=== PATIENT | female | born 1945 | race Caucasian/White ===

== ENCOUNTER → 2017-07-28 | Outpatient (CLI) | payer OTHER, MEDICAID ==
[2016-05-02 04:04] VITALS: BP 127/59
[2017-07-28 13:59] LABS: STOOL FOR WBC POSITIVE (NEGATIVE)
[2017-07-28 14:11] LABS: CRYPTOSPORIDIUM PARVUM ANTIGEN NEGATIVE (NEGATIVE); GIARDIA LAMBLIA ANTIGEN NEGATIVE (NEGATIVE)
== END ==
LOC: LAB 12:41
PROVIDERS: ATTEND Nurse Practitioner Family
DX: R19.7 Diarrhea, unspecified (principal); B96.89 Other specified bacterial agents as the cause of diseases classified elsewhere
CPT/HCPCS: 82270; 83630; 87045; 87328; 87329; 87336; 87338; 87427; 87493; 87899

== ENCOUNTER 2017-08-16 12:29 | Observation (INO) | payer OTHER, MEDICAID ==
--- NOTE | 2017-08-16 13:13 | DR.H&P ---
H&P - History & Physical for Day of: H&P Date: 08/16/17 - Chief Complaint Chief Complaint: abdominal pain, diarrhea - Allergies Allergies/Adverse Reactions: Allergies Allergy/AdvReac Type Severity Reaction Status Date / Time MS No Known Drug Allergy Allergy Verified 04/29/16 16:40 [No Known Drug Allergy] - History of Present Illness History of Present Illness: patient is a 80-year-old white female who was a direct admit from Dr. Workman's office with complaints of persistent diarrhea and left lower quadrant pain. Patient has a history of a colon resection and was previously referred to Dr. Ram for evaluation of chronic abdominal pain, chronic diarrhea. Patient states she had a stool specimen study ordered which was negative at that time. patient has a history of multiple abdominal surgeries, high blood pressure, osteoarthritis, diabetes, heart disease. Plan to admit for CT of the abdomen and pelvis, admission labs, pain and nausea control, stool studies. - Past Medical History Past Medical History: Diabetes, GERD, Hypertension - Past Surgical History Surgical History: Abdominal Surgery, Bowel Resection, Ortho Surgery - Family History Family Medical History: Diabetes Mellitus, Hypertension - Social History Does patient currently use any type of tobacco product: No Have you used tobacco products in the last 12 months: No Type of Tobacco Use: None Does any household member use tobacco: No Alcohol Use: None Drug Use: None - Review of Systems Constitutional: Weakness Eyes: No Symptoms Reported ENT: No Symptoms Reported Respiratory: No Symptoms Reported Cardiovascular: No Symptoms Reported Gastrointestinal: Nausea, Abdominal Pain, Diarrhea Genitourinary: No Symptoms Reported Musculoskeletal: Shoulder Pain, Back Pain, Leg Pain Skin: No Symptoms Reported Neurological: No Symptoms Reported - Physical Exam Vital Signs: Blood Pressure [Right Arm] 161/74 Blood Pressure [Left Arm] 127/59 Blood Pressure 127/59 Oriented: Normal Eyes: Normal Ear: Normal Nose: Normal Throat: Normal Respiratory: Clear Throughout Cardiovascular: Normal. negative: Edema : Normal Auscultation: Bowel Sounds: Increased Tenderness: RUQ, Epigastric Skin: Decreased Turgur Musculoskeletal: Back:Lumbar Psychiatric: Normal Mood Description: Calm Speech Pattern: Clear - Assessment/Plan (1) Abdominal pain Status: Acute Plan: admit, ct abd pelvis, admission labs. iv hydration, iv cipro and flagyl, pain and nausea control. resume home meds, stool studies (2) Diarrhea Status: Acute (3) Diabetes mellitus Status: Chronic (4) GERD (gastroesophageal reflux disease) Status: Chronic (5) Hypertension Status: Chronic
[2017-08-16 14:33] LABS: BASOPHILS # (AUTO) 0.1 X10^3/uL (0.0-0.1); BASOPHILS % (AUTO) 0.6 % (0.2-1.0); EOSINOPHILS # (AUTO) 0.4 x10^3/uL (0.0-0.2); EOSINOPHILS % (AUTO) 3.6 % (0.9-2.9); HEMATOCRIT 33.5 % (36.0-47.0); HEMOGLOBIN 10.5 g/dL (12.0-16.0); LYMPHOCYTES # (AUTO) 1.4 X10^3/uL (1.3-2.9); LYMPHOCYTES % (AUTO) 12.3 % (21.0-51.0); MEAN CORPUSCULAR HEMOGLOBIN 22.3 pg (27.0-34.0); MEAN CORPUSCULAR HGB CONC 31.2 g/dL (33.0-35.0); MEAN CORPUSCULAR VOLUME 71.4 fL (80.0-100.0); MEAN PLATELET VOLUME 7.8 fL (7.4-11.0); MONOCYTES # (AUTO) 0.7 x10^3/uL (0.3-0.8); MONOCYTES % (AUTO) 6.1 % (0.0-13.0); NEUTROPHILS % (AUTO) 77.4 % (42.0-75.0); PLATELET COUNT 288 X10^3/uL (150.0-450.0); RED CELL DISTRIBUTION WIDTH 16.9 % (11.6-16.5); WHITE BLOOD COUNT 11.7 X10^3/uL (3.6-10.0)
[2017-08-16] MEDS: FLAGYL IV PREMIX 500 MG BAG 500 MG/100 ML BAG IV SCH ×2 (14:40→20:33)
[2017-08-16] MEDS: NS 1000 ML 1,000 ML IV SCH (14:40)
[2017-08-16 14:48] LABS: ALANINE AMINOTRANSFERASE 26 Units/L (12-78); ALBUMIN 3.4 g/dL (3.4-5.0); ALKALINE PHOSPHATASE 108 Units/L (46-116); AMYLASE 59 Units/L (25-115); ASPARTATE AMINO TRANSFERASE 13 Units/L (15-37); BLOOD UREA NITROGEN 13 mg/dL (7-18); CALCIUM 9.8 mg/dL (8.5-10.1); CARBON DIOXIDE 29.2 mmol/L (21-32); CHLORIDE 104 mmol/L (98-107); CREATININE 0.81 mg/dL (0.55-1.02); LIPASE 213 Units/L (73-393); MAGNESIUM 1.5 mg/dL (1.7-2.9); SODIUM 141 mmol/L (136-145); TOTAL PROTEIN 7.7 g/dL (6.4-8.2); eGFR BLACK RACES > 60 (>60); eGFR NON BLACK RACES > 60 (>60)
[2017-08-16 15:01] LABS: ANISOCYTOSIS SLIGHT; HYPOCHROMASIA 1+; MICROCYTOSIS SLIGHT; PLATELET MORPHOLOGY COMMENT NORMAL (NORMAL)
--- NOTE | 2017-08-16 15:14 | RAD ---
HISTORY: Left lower quadrant pain Study: Acute abdominal series Comparison: 04/29/2016 Findings: The trachea is midline. The cardiac silhouette is unremarkable. The lungs are clear without focal i nfiltrate or effusion. The bony thorax is unremarkable. There is poor present on the right. There i s a small hiatal hernia present. Flat plate and upright evaluation of the abdomen demonstrates a normal bowel gas pattern. No pneumope ritoneum is identified.. No pathological soft tissue mass or calcification can be observed. The bon y structures are grossly intact. IMPRESSION: 1. No acute cardiopulmonary disease. 2. No evidence for acute abdominal pathology identified. 3. Small hiatal hernia Reported By:
[2017-08-16 15:37] VITALS: BMI 30.5
[2017-08-16] MEDS: CIPRO IV 400 MG PREMIX* 400 MG/200 ML IV.SOLN. IV SCH (20:33)
[2017-08-16] MEDS ORDERED: BETAPACE AF PO SCH (21:00)
[2017-08-16] MEDS ORDERED: ZOLOFT PO ONE (21:48)
[2017-08-16] MEDS ORDERED: BENTYL CAP 10 MG PO ONE (21:50)
[2017-08-16] MEDS: PriLOSEC PO SCH (22:04)
[2017-08-16] MEDS: PERCOCET TAB 5/325 MG PO PRN (22:04)
[2017-08-16] MEDS: BETAPACE AF PO SCH (22:06)
[2017-08-16] MEDS: MIRAPEX TAB 1 MG PO SCH (22:07)
[2017-08-16] MEDS: BENTYL CAP 10 MG PO SCH (22:07)
[2017-08-16] MEDS: ZOLOFT PO SCH (22:07)
[2017-08-16] MEDS: WELCHOL PO SCH (22:12)
[2017-08-16] MEDS: GLUCOPHAGE XR PO SCH (22:13)
[2017-08-17 04:37] LABS: BASOPHILS # (AUTO) 0.1 X10^3/uL (0.0-0.1); BASOPHILS % (AUTO) 0.7 % (0.2-1.0); EOSINOPHILS # (AUTO) 0.4 x10^3/uL (0.0-0.2); EOSINOPHILS % (AUTO) 5.1 % (0.9-2.9); HEMATOCRIT 30.6 % (36.0-47.0); HEMOGLOBIN 9.7 g/dL (12.0-16.0); LYMPHOCYTES # (AUTO) 1.6 X10^3/uL (1.3-2.9); LYMPHOCYTES % (AUTO) 20.5 % (21.0-51.0); MEAN CORPUSCULAR HEMOGLOBIN 22.5 pg (27.0-34.0); MEAN CORPUSCULAR HGB CONC 31.7 g/dL (33.0-35.0); MEAN CORPUSCULAR VOLUME 71.2 fL (80.0-100.0); MEAN PLATELET VOLUME 8.1 fL (7.4-11.0); MONOCYTES # (AUTO) 0.5 x10^3/uL (0.3-0.8); MONOCYTES % (AUTO) 6.9 % (0.0-13.0); NEUTROPHILS # (AUTO) 5.3 x10^3/uL (2.2-4.8); NEUTROPHILS % (AUTO) 66.8 % (42.0-75.0); PLATELET COUNT 246 X10^3/uL (150.0-450.0); RED CELL DISTRIBUTION WIDTH 16.6 % (11.6-16.5)
[2017-08-17 04:43] LABS: ALANINE AMINOTRANSFERASE 21 Units/L (12-78); ALKALINE PHOSPHATASE 87 Units/L (46-116); ASPARTATE AMINO TRANSFERASE 13 Units/L (15-37); BLOOD UREA NITROGEN 11 mg/dL (7-18); CALCIUM 9.5 mg/dL (8.5-10.1); CHLORIDE 105 mmol/L (98-107); COR CA(FOR HYPOALB) 10.3 mg/dL (8.5-10.1); CREATININE 0.72 mg/dL (0.55-1.02); SODIUM 140 mmol/L (136-145); TOTAL PROTEIN 6.7 g/dL (6.4-8.2); eGFR BLACK RACES > 60 (>60); eGFR NON BLACK RACES > 60 (>60)
[2017-08-17] MEDS: FLAGYL IV PREMIX 500 MG BAG 500 MG/100 ML BAG IV SCH ×4 (04:45→21:55)
[2017-08-17 05:40] LABS: ANISOCYTOSIS SLIGHT; HYPOCHROMASIA 1+; MICROCYTOSIS SLIGHT; PLATELET MORPHOLOGY COMMENT NORMAL (NORMAL)
[2017-08-17] MEDS: WELCHOL PO SCH ×2 (06:21→16:58)
[2017-08-17] MEDS: MIRAPEX TAB 1 MG PO SCH ×3 (06:21→21:56)
[2017-08-17] MEDS: BENTYL CAP 10 MG PO SCH ×3 (06:21→21:55)
[2017-08-17] MEDS ORDERED: ZOLOFT PO ONE ×2 (08:41→21:48)
[2017-08-17] MEDS: ZOLOFT PO SCH ×2 (08:50→21:55)
[2017-08-17] MEDS: PriLOSEC PO SCH ×2 (08:51→21:56)
[2017-08-17] MEDS: CIPRO IV 400 MG PREMIX* 400 MG/200 ML IV.SOLN. IV SCH ×2 (08:51→21:55)
[2017-08-17] MEDS: PHENERGAN INJ 25 MG IV PRN ×2 (09:38→23:55)
[2017-08-17] MEDS: BETAPACE AF PO SCH ×2 (09:40→21:58)
[2017-08-17] MEDS: GLUCOPHAGE XR PO SCH ×2 (09:40→09:41)
--- NOTE | 2017-08-17 13:22 | PCM.PROG ---
Progress Note - Progress Note for Day of Date: 08/17/17 - Subjective Subjective: patient is a 71-year-old white female who was admitted one day ago with persistent left lower quadrant abdominal pain and diarrhea. Patient's stool studies are pending us at this time patient's labs this morning hemoglobin stable at 9.7 white count within normal range potassium was 3.7 renal function was stable we plan to obtain CT of the abdomen and pelvis, patient is fasting this a.m. for procedure. Patient also on IV antibiotics for colitis we will continue current plan of care general hydration pain and nausea control and further assess after diagnostic tests. - Past Medical Family Social History Past Med/Fam/Surg Hx: No changes since H&P Allergies: Allergies No Known Allergies Allergy (Verified 08/16/17 16:15) - Review of Systems ROS: No change since H&P - Vital Signs and I&O's Vital Signs: Temperature 97.6 F Pulse Rate [Left Radial] 64 Respiratory Rate 20 Blood Pressure [Right Arm] 176/80 Blood Pressure [Left Arm] 154/78 Blood Pressure 127/59 O2 Sat by Pulse Oximetry 97 Intake and Output: Intake & Output 08/15/17 08/16/17 08/17/17 08/18/17 11:59 11:59 11:59 11:59 Intake Total 1145 Output Total 900 Balance 245 - Physical Exam Oriented: Normal Eyes: Normal Ear: Normal Nose: Normal Throat: Normal Respiratory: Diminished Cardiovascular: Normal. negative: Edema : Normal Auscultation: Bowel Sounds: Increased Tenderness: RUQ, LLQ, Epigastric Skin: Decreased Turgur Musculoskeletal: Back:Lumbar Psychiatric: Normal Mood Description: Calm Speech Pattern: Clear, Appropriate - Laboratory and Diagnostics Result Diagrams: 08/17/17 04:12 08/17/17 04:12 Labs: Laboratory WBC 8.0 X10^3/uL (3.6-10.0) 08/17/17 04:12 RBC 4.30 X10^6/uL (3.5-5.4) 08/17/17 04:12 Hgb 9.7 g/dL (12.0-16.0) L 08/17/17 04:12 Hct 30.6 % (36.0-47.0) L 08/17/17 04:12 MCV 71.2 fL (80.0-100.0) L 08/17/17 04:12 MCH 22.5 pg (27.0-34.0) L 08/17/17 04:12 MCHC 31.7 g/dL (33.0-35.0) L 08/17/17 04:12 RDW 16.6 % (11.6-16.5) H 08/17/17 04:12 Plt Count 246 X10^3/uL (150.0-450.0) 08/17/17 04:12 Plt Count Comment Adequate (ADEQUATE) 08/17/17 04:12 MPV 8.1 fL (7.4-11.0) 08/17/17 04:12 Neut % 66.8 % (42.0-75.0) 08/17/17 04:12 Lymph % 20.5 % (21.0-51.0) L 08/17/17 04:12 [place] % 6.9 % (0.0-13.0) 08/17/17 04:12 Eos % 5.1 % (0.9-2.9) H 08/17/17 04:12 Baso % 0.7 % (0.2-1.0) 08/17/17 04:12 Neut # 5.3 x10^3/uL (2.2-4.8) H 08/17/17 04:12 Lymph # 1.6 X10^3/uL (1.3-2.9) 08/17/17 04:12 [place] # 0.5 x10^3/uL (0.3-0.8) 08/17/17 04:12 Eos # 0.4 x10^3/uL (0.0-0.2) H 08/17/17 04:12 Baso # 0.1 X10^3/uL (0.0-0.1) 08/17/17 04:12 Absolute Nucleated RBC 0.0 /100WBC 08/17/17 04:12 Plt Morphology Comment Normal (NORMAL) 08/17/17 04:12 RBC Morphology Abnormal (NORMAL) A 08/17/17 04:12 Hypochromasia 1+ A 08/17/17 04:12 Anisocytosis Slight A 08/17/17 04:12 Microcytosis Slight A 08/17/17 04:12 Sodium 140 mmol/L (136-145) 08/17/17 04:12 Corrected Sodium TNP 08/17/17 04:12 Potassium 3.7 mmol/L (3.5-5.1) 08/17/17 04:12 Chloride 105 mmol/L (98-107) 08/17/17 04:12 Carbon Dioxide 27.0 mmol/L (21-32) 08/17/17 04:12 BUN 11 mg/dL (7-18) 08/17/17 04:12 Creatinine 0.72 mg/dL (0.55-1.02) 08/17/17 04:12 Est GFR (MDRD) Af Amer > 60 (>60) 08/17/17 04:12 Est GFR (MDRD) Non-Af > 60 (>60) 08/17/17 04:12 Glucose 96 mg/dL (65-99) 08/17/17 04:12 POC Glucose (mg/dL) 173 mg/dL (65-99) H 08/17/17 11:20 Calcium 9.5 mg/dL (8.5-10.1) 08/17/17 04:12 Corrected Calcium 10.3 mg/dL (8.5-10.1) H 08/17/17 04:12 Magnesium 1.5 mg/dL (1.7-2.9) L 08/16/17 14:26 Total Bilirubin 0.40 mg/dL (0.2-1.0) 08/17/17 04:12 AST 13 Units/L (15-37) L 08/17/17 04:12 ALT 21 Units/L (12-78) 08/17/17 04:12 Alkaline Phosphatase 87 Units/L (46-116) 08/17/17 04:12 Total Protein 6.7 g/dL (6.4-8.2) 08/17/17 04:12 Albumin 3.0 g/dL (3.4-5.0) L 08/17/17 04:12 Globulin 3.7 g/dL (2.5-4.5) 08/17/17 04:12 Albumin/Globulin Ratio 0.8 Ratio (1.1-2.1) L 08/17/17 04:12 Amylase 59 Units/L (25-115) 08/16/17 14:26 Lipase 213 Units/L (73-393) 08/16/17 14:26 - Plan (1) Abdominal pain Status: Acute Plan: ct abd pelvis, am labs. iv hydration, iv cipro and flagyl, pain and nausea control. resume home meds, stool studies (2) Diarrhea Status: Acute (3) Diabetes mellitus Status: Chronic (4) GERD (gastroesophageal reflux disease) Status: Chronic (5) Hypertension Status: Chronic
[2017-08-17] MEDS: NS 1000 ML 1,000 ML IV SCH (14:09)
[2017-08-17] MEDS ORDERED: BENTYL CAP 10 MG PO PRN (15:18)
[2017-08-17] MEDS ORDERED: SOTALOL HCL 120 MG PO SCH (15:30)
[2017-08-17] MEDS ORDERED: PriLOSEC PO SCH (16:00)
[2017-08-17] MEDS ORDERED: WELCHOL PO SCH (16:00)
[2017-08-17] MEDS: PERCOCET TAB 5/325 MG PO PRN (16:58)
[2017-08-17] MEDS ORDERED: FERROUS GLUCONATE PO SCH (18:00)
--- NOTE | 2017-08-17 18:11 | CT ---
CT ABDOMEN AND PELVIS WITH IV AND ORAL CONTRAST CLINICAL HISTORY: 71-year-old female with left lower quadrant pain and diarrhea. History of colon res ection. COMPARISON: None. TECHNIQUE: Multiple contiguous axial images of the abdomen and pelvis were obtained following the adm inistration of IV and oral contrast. Coronal and sagittal reformatted imaging was submitted. FINDINGS: The lung bases are clear without pulmonary nodules, masses, or pleural fluid collections. Stable rig ht posterior basal pleural plaque and granulomatous disease. The inferior imaged mediastinum and hear t is normal in size and there is no pericardial effusion. The liver, gallbladder, pancreas, and spleen are within normal limits. The adrenal glands are normal bilaterally. The kidneys perfuse in a normal fashion. Chronic severe r ight-sided hydronephrosis with tortuous hydroureter to the level of the common iliac vessels with mil d chronic left hydroureter and pelvic caliectasis. Left ureter courses normally otherwise to a well-d istended urinary bladder. Uterus is anteverted and mildly atrophic with questionable, stable uterine fibroid with stable pelvic venous congestion. The ovaries, perineum and vagina are within normal limits. Multiple pelvic phleb oliths. Fibrosis and scarring within the presacral soft tissues with scattered foci of gas measuring 2.5 x 5. 3 by 5.9 cm, overall stable in the comparison interval. Degree of sclerosis of the sacrum is unchange d. Evidence of prior surgery at the GE junction with moderate, stable hiatal hernia. The appendix is not visualized with no inflammatory change to suggest appendicitis. Oral contrast reaches the hepatic fl exure. The bowel is without obstruction or inflammation and there is no free fluid or free air within the peritoneal cavity. Diverticulosis without CT evidence of diverticulitis. Surgical line at the re ctosigmoid. There are no pathologically enlarged lymph nodes in the abdomen or pelvis. Scattered calcific atherosclerotic plaque. Fat containing infraumbilical hernia is stable. The osseous structures are intact without fracture or malalignment. Degenerative disease of the imag ed spine with degenerative anterolisthesis L5 on S1 and near-complete loss of disc space L2-L3 with v acuum disc phenomenon. IMPRESSION: 1. Overall stable appearance of fibrosis with contain foci of gas in the presacral soft tissues that may represent a chronic anastomotic leak, oral contrast only reaches the hepatic flexure. Degree of s clerosis of the sacrum is stable. 2. Chronic severe right-sided hydronephrosis and hydroureter to the level of the iliac vessels with c hronic mild left-sided hydroureter to the level of the iliac vessels and pelvic caliectasis. 3. Suspected uterine fibroid, correlate with transvaginal ultrasound and follow-up with [facility] recommend ed if not previously performed. 4. Nonvisualized appendix without inflammatory change to suggest appendicitis. Reported By:
[2017-08-17] MEDS ORDERED: SNACK - Diabetic Appropriate PO SCH (20:00)
[2017-08-17] MEDS ORDERED: ZOLOFT PO SCH (21:00)
[2017-08-17] MEDS: ASPIRIN EC 81 MG PO SCH (21:56)
[2017-08-17] MEDS ORDERED: PATIENT'S HOME MEDICATION (Pramipexole Di-Hcl [Pramipexole Dihydrochloride] 1 TAB) PO SCH (22:00)
[2017-08-18] MEDS: FLAGYL IV PREMIX 500 MG BAG 500 MG/100 ML BAG IV SCH ×3 (04:05→16:37)
[2017-08-18 06:19] LABS: BASOPHILS % (AUTO) 0.5 % (0.2-1.0); EOSINOPHILS # (AUTO) 0.4 x10^3/uL (0.0-0.2); EOSINOPHILS % (AUTO) 4.6 % (0.9-2.9); HEMATOCRIT 30.8 % (36.0-47.0); HEMOGLOBIN 9.9 g/dL (12.0-16.0); LYMPHOCYTES # (AUTO) 0.9 X10^3/uL (1.3-2.9); LYMPHOCYTES % (AUTO) 10.1 % (21.0-51.0); MEAN CORPUSCULAR HEMOGLOBIN 22.6 pg (27.0-34.0); MEAN CORPUSCULAR VOLUME 70.5 fL (80.0-100.0); MEAN PLATELET VOLUME 8.3 fL (7.4-11.0); MONOCYTES # (AUTO) 0.7 x10^3/uL (0.3-0.8); MONOCYTES % (AUTO) 7.8 % (0.0-13.0); NEUTROPHILS # (AUTO) 6.5 x10^3/uL (2.2-4.8); PLATELET COUNT 235 X10^3/uL (150.0-450.0); RED BLOOD COUNT 4.37 X10^6/uL (3.5-5.4); RED CELL DISTRIBUTION WIDTH 16.8 % (11.6-16.5); WHITE BLOOD COUNT 8.5 X10^3/uL (3.6-10.0)
[2017-08-18 06:26] LABS: ALANINE AMINOTRANSFERASE 20 Units/L (12-78); ALBUMIN 3.2 g/dL (3.4-5.0); ALKALINE PHOSPHATASE 89 Units/L (46-116); ASPARTATE AMINO TRANSFERASE 11 Units/L (15-37); BLOOD UREA NITROGEN 10 mg/dL (7-18); CALCIUM 9.6 mg/dL (8.5-10.1); CARBON DIOXIDE 27.9 mmol/L (21-32); CHLORIDE 107 mmol/L (98-107); COR CA(FOR HYPOALB) 10.2 mg/dL (8.5-10.1); COR NA(FOR HYPERGLY) 141 mmol/L (136-145); CREATININE 0.79 mg/dL (0.55-1.02); SODIUM 140 mmol/L (136-145); eGFR BLACK RACES > 60 (>60); eGFR NON BLACK RACES > 60 (>60)
[2017-08-18] MEDS: MIRAPEX TAB 1 MG PO SCH ×2 (06:26→13:38)
[2017-08-18] MEDS: BENTYL CAP 10 MG PO SCH ×2 (06:26→13:38)
[2017-08-18 06:51] LABS: HYPOCHROMASIA 1+; PLATELET MORPHOLOGY COMMENT NORMAL (NORMAL)
[2017-08-18] MEDS ORDERED: HEMOCYTE-PLUS PO SCH (09:00)
[2017-08-18] MEDS: WELCHOL PO SCH ×2 (09:00→16:34)
[2017-08-18] MEDS ORDERED: ZOLOFT PO ONE (09:03)
[2017-08-18] MEDS: NS 1000 ML 1,000 ML IV SCH ×2 (09:08→14:00)
[2017-08-18] MEDS: CIPRO IV 400 MG PREMIX* 400 MG/200 ML IV.SOLN. IV SCH (09:09)
[2017-08-18] MEDS: PriLOSEC PO SCH (09:09)
[2017-08-18] MEDS: ASPIRIN EC 81 MG PO SCH (09:09)
[2017-08-18] MEDS: GLUCOPHAGE XR PO SCH (09:10)
[2017-08-18] MEDS: BETAPACE AF PO SCH (09:10)
[2017-08-18] MEDS: PERCOCET TAB 5/325 MG PO PRN ×2 (09:11→17:52)
[2017-08-18] MEDS: ZOLOFT PO SCH (11:00)
[2017-08-18 16:23] VITALS: BP 179/84
--- NOTE | 2017-08-18 17:30 | US ---
HISTORY: Right upper quadrant pain, nausea, vomiting Study: Gallbladder Ultrasound Comparison: CT 08/17/2017 Technique: Multiple bright scale and color flow Doppler images of the right upper quadrant were obtaine d. Findings: The visualized liver is normal in echotexture and size. No evidence of gallstones. The common bile duct measures 5.3 mm. No pericholecystic fluid or gallbladder wall thickening. No sonographic Trimble 's sign reported. 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 IMPRESSION: 1. Normal appearance of the gallbladder. Reported By:
== END 2017-08-18 17:56 | disposition home or self-care (01) ==
LOC: OBS 12:29
PROVIDERS: ADMIT Internal Medicine; ATTEND Internal Medicine
DX: R10.32 Left lower quadrant pain (principal); R19.7 Diarrhea, unspecified; I10 Essential (primary) hypertension; E11.65 Type 2 diabetes mellitus with hyperglycemia; I25.10 Atherosclerotic heart disease of native coronary artery without angina pectoris; K21.9 Gastro-esophageal reflux disease without esophagitis; N13.39 Other hydronephrosis; K90.49 Malabsorption due to intolerance, not elsewhere classified; D64.89 Other specified anemias; D72.828 Other elevated white blood cell count; Z87.19 Personal history of other diseases of the digestive system
CPT/HCPCS: 36415; 74022; 74177; 76705; 80053; 82150; 82270; 83690; 83735; 85025; 87045; 87427; 87493; 87899; A4222; S0030; G0378; J0744; J2550

== ENCOUNTER 2017-10-20 12:53 | Emergency (ER) | payer OTHER, MEDICAID ==
[2017-10-20 13:02] VITALS: BP 137/67; BMI 19.8
--- NOTE | 2017-10-20 13:50 | DR.GENAD ---
HPI - PCP Primary Care Physician: DORCAS REYES [employer] FIX[employer] APPRENTICE - Complaint/Symptoms Chief Complaint Doctors Comments: Patient states that she has been tired and sleepy for one week. Denies vomiting or diarrhea. Admits to fever. She admits to having abdominal surgery in the past with complications of a bladder leak. she is awaiting a colonscopy with Dr Cardona. She denies pain. Chief Complaint:: PT'S SPOUSE STATES " PT IS VERY WEAK AND THAT SHE HAS HAD A BLADDER LEAK TO BE FIXED AND THAT SHE IS ANEMIC".. Self Treatment fo Chief Complaint: PT 'S SPOUSE "I TALKED TO DORCAS AND SHE TOLD ME TO TAKE HER TO THE ER AND HAVE HER BLOOD CHECKED" - Mode of Arrival Mode of Arrival: Ambulatory - Timing Onset of Chief Complaint: 10/20/17 PMH - PMH Past Medical History: Yes Past Medical History: Diabetes, GERD, Hypertension Past Surgical History: Yes Surgical History: Abdominal Surgery, Bowel Resection, Ortho Surgery - Family History History of Family Medical Conditions: Yes Family Medical History: Diabetes Mellitus, Hypertension - Social History Does patient currently use any type of tobacco product: No Have you used tobacco products in the last 12 months: No Type of Tobacco Use: None Does any household member use tobacco: No Alcohol Use: None Do you use any recreational Drugs:: No Lives With: Family Lives Where: Home - infectious screening In the last 2 months have you had wt loss of >10#?: NO Have you had fever, night sweats or hemotysis?: No Have you traveled outside the country in the last 6 months?: No Isolation: Standard ROS - Review of Systems Constitutional: negative: Diaphoresis Eyes: No Symptoms Reported ENTM: No Symptoms Reported Respiratoy: No Symptoms Reported Cardiovascular: No Symptoms Reported Gastrointestinal/Abdominal: No Symptoms Reported Genitourinary: No Symptoms Reported Neurological: No Symptoms Reported Musculoskeletal: No Symptoms Reported Integumentary: No Symptoms Reported Hematologic/Lymphatic: No Symptoms Reported Endocrine: No Symptoms Reported Psychiatric: No Symptoms Reported All Other Systems: Reviewed and Negative PE - Vital Signs Vitals: Temperature 98.0 F Pulse Rate 72 Respiratory Rate 18 Blood Pressure [Right Arm] 165/79 Blood Pressure [Left Arm] 179/84 Blood Pressure 137/67 O2 Sat by Pulse Oximetry 95 - General Limitations: No Limitations General Appearance: Alert, In No Apparent Distress - Head Head Exam: Normal Inspection, Atraumatic - Eyes Eye exam: Normal Appearance, PERRL, EOMI - ENT ENT Exam: Normal Exam External Ear Exam: Normal External Inspection TM/Canal Exam: Bilateral Normal Nose Exam: Normal Nose Exam Mouth Exam: Normal Inspection Throat Exam: Normal Inspection - Neck Neck Exam: Normal Inspection, Full ROM - Chest Chest Inspection: Normal Inspection - Respiratory Respiratory Exam: Normal Lung Sounds Bilat Respiratory Exam: Bilateral Clear to Auscultation - Cardiovascular Cardiovascular Exam: Regular Rate, Normal Rhythm - Abdominal Exam Abdominal Exam: Normal Inspection Abdominal Tenderness: negative: RUQ, RLQ, LUQ, LLQ, Epigastrium, Suprapubic, Diffuse, Mild, Moderate, Severe, Other - Extremities Extremities Exam: Normal Inspection, Full ROM - Back Back Exam: Normal Inspection, Full ROM - Neurologic Neurological Exam: Alert, Oriented X3, CN II-XII Intact - Psychiatric Psychiatric Exam: Normal Affect, Normal Mood - Skin Skin Exam: Warm, Dry, Intact Course - Reevaluation 1st: Unchanged ROR - Labs Reviewed Result Diagrams: 10/20/17 14:45 10/20/17 14:45 Laboratory: WBC 11.1 X10^3/uL (3.6-10.0) H 10/20/17 14:45 RBC 4.75 X10^6/uL (3.5-5.4) 10/20/17 14:45 Hgb 10.5 g/dL (12.0-16.0) L 10/20/17 14:45 Hct 33.6 % (36.0-47.0) L 10/20/17 14:45 MCV 70.6 fL (80.0-100.0) L 10/20/17 14:45 MCH 22.1 pg (27.0-34.0) L 10/20/17 14:45 MCHC 31.3 g/dL (33.0-35.0) L 10/20/17 14:45 RDW 18.0 % (11.6-16.5) H 10/20/17 14:45 Plt Count 276 X10^3/uL (150.0-450.0) 10/20/17 14:45 Plt Count Comment Adequate (ADEQUATE) 10/20/17 14:45 MPV 8.5 fL (7.4-11.0) 10/20/17 14:45 Neut % 75.4 % (42.0-75.0) H 10/20/17 14:45 Lymph % 13.7 % (21.0-51.0) L 10/20/17 14:45 [place] % 7.4 % (0.0-13.0) 10/20/17 14:45 Eos % 3.0 % (0.9-2.9) H 10/20/17 14:45 Baso % 0.5 % (0.2-1.0) 10/20/17 14:45 Neut # 8.4 x10^3/uL (2.2-4.8) H 10/20/17 14:45 Lymph # 1.5 X10^3/uL (1.3-2.9) 10/20/17 14:45 [place] # 0.8 x10^3/uL (0.3-0.8) 10/20/17 14:45 Eos # 0.3 x10^3/uL (0.0-0.2) H 10/20/17 14:45 Baso # 0.1 X10^3/uL (0.0-0.1) 10/20/17 14:45 Absolute Nucleated RBC 0.0 /100WBC 10/20/17 14:45 Nucleated RBCs Cancelled 10/20/17 14:45 Atypical Lymphocytes Cancelled 10/20/17 14:45 Blast Cells Cancelled 10/20/17 14:45 Smudge Cells Cancelled 10/20/17 14:45 Toxic Granulation Cancelled 10/20/17 14:45 Dohle Bodies Cancelled 10/20/17 14:45 Tamara Rods Cancelled 10/20/17 14:45 Plt Clumps, EDTA Cancelled 10/20/17 14:45 Giant Platelets Cancelled 10/20/17 14:45 Plt Morphology Comment Normal (NORMAL) 10/20/17 14:45 RBC Morphology Abnormal (NORMAL) A 10/20/17 14:45 Dimorphic RBCs Cancelled 10/20/17 14:45 Polychromasia Cancelled 10/20/17 14:45 Hypochromasia Slight A 10/20/17 14:45 Poikilocytosis Cancelled 10/20/17 14:45 Basophilic Stippling Cancelled 10/20/17 14:45 Anisocytosis Cancelled 10/20/17 14:45 Microcytosis Cancelled 10/20/17 14:45 Macrocytosis Cancelled 10/20/17 14:45 Spherocytes Cancelled 10/20/17 14:45 Pappenheimer Bodies Cancelled 10/20/17 14:45 Sickle Cells Cancelled 10/20/17 14:45 Target Cells Cancelled 10/20/17 14:45 Tear Drop Cells Cancelled 10/20/17 14:45 Ovalocytes Cancelled 10/20/17 14:45 Stomatocytes Cancelled 10/20/17 14:45 Helmet Cells Cancelled 10/20/17 14:45 [place] Bodies Cancelled 10/20/17 14:45 [place] Rings Cancelled 10/20/17 14:45 [place] Cells Cancelled 10/20/17 14:45 Crenated Cell Cancelled 10/20/17 14:45 Acanthocytes (Spur) Cancelled 10/20/17 14:45 Rouleaux Cancelled 10/20/17 14:45 Schistocytes Cancelled 10/20/17 14:45 Sodium 141 mmol/L (136-145) 10/20/17 14:45 Corrected Sodium TNP 10/20/17 14:45 Potassium 5.0 mmol/L (3.5-5.1) 10/20/17 14:45 Chloride 103 mmol/L (98-107) 10/20/17 14:45 Carbon Dioxide 31.5 mmol/L (21-32) 10/20/17 14:45 BUN 12 mg/dL (7-18) 10/20/17 14:45 Creatinine 0.75 mg/dL (0.55-1.02) 10/20/17 14:45 Est GFR (MDRD) Af Amer > 60 (>60) 10/20/17 14:45 Est GFR (MDRD) Non-Af > 60 (>60) 10/20/17 14:45 Glucose 100 mg/dL (65-99) H 10/20/17 14:45 Calcium 9.9 mg/dL (8.5-10.1) 10/20/17 14:45 Corrected Calcium TNP 10/20/17 14:45 Total Bilirubin 0.20 mg/dL (0.2-1.0) 10/20/17 14:45 AST 13 Units/L (15-37) L 10/20/17 14:45 ALT 18 Units/L (12-78) 10/20/17 14:45 Alkaline Phosphatase 93 Units/L (46-116) 10/20/17 14:45 C-Reactive Protein 8.90 mg/L (0-3.0) H 10/20/17 14:45 Total Protein 7.5 g/dL (6.4-8.2) 10/20/17 14:45 Albumin 3.4 g/dL (3.4-5.0) 10/20/17 14:45 Globulin 4.1 g/dL (2.5-4.5) 10/20/17 14:45 Albumin/Globulin Ratio 0.8 Ratio (1.1-2.1) L 10/20/17 14:45 Specimen Type Clean catch urine 10/20/17 15:40 Urine Color Yellow (YELLOW) 10/20/17 15:40 Urine Appearance Clear (CLEAR) 10/20/17 15:40 Urine pH 6.0 (5.0 - 8.0) 10/20/17 15:40 Ur Specific [place] 1.015 (1.000-1.030) 10/20/17 15:40 Urine Protein Negative (NEGATIVE) 10/20/17 15:40 Urine Glucose (UA) Negative (NEGATIVE) 10/20/17 15:40 Urine Ketones Negative (NEGATIVE) 10/20/17 15:40 Urine Occult Blood 2+ (NEGATIVE) 10/20/17 15:40 Urine Nitrite Negative (NEGATIVE) 10/20/17 15:40 Urine Bilirubin Negative (NEGATIVE) 10/20/17 15:40 Urine Urobilinogen Normal (NORMAL) 10/20/17 15:40 Ur Leukocyte Esterase 1+ (NEGATIVE) 10/20/17 15:40 Urine RBC 3-5 /HPF (NEGATIVE) 10/20/17 15:40 Urine WBC 0-2 /HPF (NEGATIVE) 10/20/17 15:40 Ur Squamous Epith Cells Rare /HPF (NEGATIVE) 10/20/17 15:40 Urine Bacteria Trace /HPF (NEGATIVE) 10/20/17 15:40 Ur Culture Indicated? No/not indicated 10/20/17 15:40 - Diagnosis Discharge Problem: Unspecified injury of bladder, sequela, History of anemia - Discharge Plan Condition: Stable - Follow ups/Referrals Follow ups/Referrals: NFD,None [Primary Care Provider] - 3 days - Instructions
[2017-10-20 15:10] LABS: ALANINE AMINOTRANSFERASE 18 Units/L (12-78); ALBUMIN 3.4 g/dL (3.4-5.0); ALKALINE PHOSPHATASE 93 Units/L (46-116); ASPARTATE AMINO TRANSFERASE 13 Units/L (15-37); BLOOD UREA NITROGEN 12 mg/dL (7-18); CALCIUM 9.9 mg/dL (8.5-10.1); CARBON DIOXIDE 31.5 mmol/L (21-32); CHLORIDE 103 mmol/L (98-107); CREATININE 0.75 mg/dL (0.55-1.02); SODIUM 141 mmol/L (136-145); TOTAL PROTEIN 7.5 g/dL (6.4-8.2); eGFR BLACK RACES > 60 (>60); eGFR NON BLACK RACES > 60 (>60)
[2017-10-20 15:29] LABS: BASOPHILS # (AUTO) 0.1 X10^3/uL (0.0-0.1); BASOPHILS % (AUTO) 0.5 % (0.2-1.0); EOSINOPHILS # (AUTO) 0.3 x10^3/uL (0.0-0.2); HEMATOCRIT 33.6 % (36.0-47.0); HEMOGLOBIN 10.5 g/dL (12.0-16.0); LYMPHOCYTES # (AUTO) 1.5 X10^3/uL (1.3-2.9); LYMPHOCYTES % (AUTO) 13.7 % (21.0-51.0); MEAN CORPUSCULAR HEMOGLOBIN 22.1 pg (27.0-34.0); MEAN CORPUSCULAR HGB CONC 31.3 g/dL (33.0-35.0); MEAN CORPUSCULAR VOLUME 70.6 fL (80.0-100.0); MEAN PLATELET VOLUME 8.5 fL (7.4-11.0); MONOCYTES # (AUTO) 0.8 x10^3/uL (0.3-0.8); MONOCYTES % (AUTO) 7.4 % (0.0-13.0); NEUTROPHILS # (AUTO) 8.4 x10^3/uL (2.2-4.8); NEUTROPHILS % (AUTO) 75.4 % (42.0-75.0); PLATELET COUNT 276 X10^3/uL (150.0-450.0); RED BLOOD COUNT 4.75 X10^6/uL (3.5-5.4); WHITE BLOOD COUNT 11.1 X10^3/uL (3.6-10.0)
[2017-10-20 15:31] LABS: HYPOCHROMASIA SLIGHT; PLATELET MORPHOLOGY COMMENT NORMAL (NORMAL)
[2017-10-20 15:47] LABS: BILIRUBIN,URINE NEGATIVE (NEGATIVE); BLOOD/HEMOGLOBIN,URINE 2+ (NEGATIVE); GLUCOSE, URINE NEGATIVE (NEGATIVE); KETONES,URINE NEGATIVE (NEGATIVE); LEUKOCYTE ESTERASE ,URINE 1+ (NEGATIVE); NITRITES,URINE NEGATIVE (NEGATIVE); PROTEIN,URINE NEGATIVE (NEGATIVE); UROBILINOGEN,URINE NORMAL (NORMAL)
[2017-10-20 15:54] LABS: APPEARANCE,URINE CLEAR (CLEAR); BACTERIA,URINE TRACE /HPF (NEGATIVE); COLOR,URINE YELLOW (YELLOW); SQUAMOUS EPITHELIAL CELL,UR RARE /HPF (NEGATIVE)
== END 2017-10-20 16:23 | disposition home or self-care (01) ==
LOC: ER 13:16
DX: S37.20XA Unspecified injury of bladder, initial encounter (principal); Z86.2 Personal history of diseases of the blood and blood-forming organs and certain disorders involving the immune mechanism; Y33.XXXA Other specified events, undetermined intent, initial encounter
CPT/HCPCS: 36415; 80053; 81001; 85025; 86140; 99282

== ENCOUNTER → 2018-01-03 | Outpatient (CLI) | payer OTHER, MEDICAID ==
--- NOTE | 2018-01-04 12:17 | CT ---
HISTORY: Neck pain Study: CT cervical spine without contrast Comparison: None Technique: Multiple axial images of the cervical spine were obtained from the skull base to the thora cic inlet without administration of IV contrast. Sagittal and coronal reformats were performed and r eviewed. Dose reduction techniques including Automated Exposure Control (AEC) and adjustment of mA an d kV were utilized. Findings: There is nonspecific cervical straightening. Vertebral body heights are preserved. Multilevel disc sp dangelo narrowing is present with uncovertebral spurring most prominent at C4-C5 and C5-C6 resulting in m oderate foraminal stenosis. Mild facet degenerative changes are also seen bilaterally at C4-C5, C5-C6 and on the left at C3-C4. The posterior elements are intact. No evidence of acute fracture or dislo cation. The odontoid process is intact. The visualized prevertebral and paraspinal soft tissues appear normal. The visualized lung apices are clear. IMPRESSION: 1. Cervical degenerative changes as described most prominent at C4-C5 and C5-C6. Reported By:
== END ==
LOC: RAD 13:26
PROVIDERS: ATTEND Nurse Practitioner Family
DX: M50.321 Other cervical disc degeneration at C4-C5 level (principal)
CPT/HCPCS: 72125

== ENCOUNTER → 2018-01-17 | Outpatient (CLI) | payer OTHER, MEDICAID ==
--- NOTE | 2018-01-18 16:09 | CT ---
HISTORY: Neck pain status post manipulation Study: CT cervical spine without contrast Comparison: January 03, 2018 Technique: Multiple axial images of the cervical spine were obtained from the skull base to the thora cic inlet without administration of IV contrast. Sagittal and coronal reformats were performed and r eviewed. AEC was utilized. Findings: [facility] radiograph demonstrates a right-sided Port-A-Cath and right shoulder total arthroplasty. There is straightening of the cervical lordosis. No evidence for acute cortical disruption or subluxation can be seen. No destructive osseous lesions are seen. The prevertebral soft tissues are normal in t heir appearance. In addition, the surrounding paraspinous soft tissues are unremarkable. There is mo derate multilevel discogenic degenerative disease and facet arthropathy most severe at C4-5 and C5-6. 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 Incidentally noted is subp leural nodularity in the bilateral upper lobes which is likely postinflammatory and which was not cheryle ged on previous exam secondary to differences in slice acquisition but for which temporal surveillanc e is recommended. IMPRESSION: Moderate cervical spondylosis. Incidental biapical subpleural nodularity which is likely postinflammatory but for which follow-up CT chest without contrast is recommended in approximately 3-6 months. Reported By:
== END ==
LOC: RAD 14:47
PROVIDERS: ATTEND Internal Medicine
DX: M50.321 Other cervical disc degeneration at C4-C5 level (principal); M47.892 Other spondylosis, cervical region
CPT/HCPCS: 72125